=== PATIENT | female | born 1940 | race African-American/Black ===

== ENCOUNTER 2017-05-15 12:01 | Inpatient (IN) | payer OTHER ==
[~2017-05-15] VITALS: Ht 165.1 cm; Wt 85.0 kg
[~2017-05-15 12:01] MED LIST: FERR324T4 PO; LEVO100T8 PO; LEVOFLOXACIN PO; LISI-711 PO; PANTPAK PO; SUCR1TAB36 PO
[2017-05-15] MEDS ORDERED: SODIUM CHLORIDE 0.9% 1,000 ML IVB ONE (12:23)
[2017-05-15 13:10] LABS: Urine Bacteria NONE SEEN /hpf (None Seen); Urine Blood Negative /uL (Negative); Urine Mucus FEW (None Seen); Urine Specific Gravity 1.022 (1.001-1.035); Urine WBC 7 /hpf (0 - 5)
[2017-05-15 13:17] LABS: Basophils # (auto) 0 uL; Eosinophils # (auto) 0 uL; Eosinophils % (auto) 0.1 % (0.0-7.0); Hemoglobin 11.6 g/dL (12.2-16.2); White Blood Cell 8.6 10^3/uL (4.4-10.8)
[2017-05-15 13:18] LABS: Basophils % (auto) 0.6 % (0.0-2.0); Hematocrit 37.7 % (36.0-46.0); Lymphocytes # (auto) 0.8 uL; Lymphocytes % (auto) 8.8 % (10.0-50.0); Mean Corpuscular Hgb Conc. 30.6 g/dL (32.0-36.0); Monocytes # (auto) 0.6 uL; Monocytes % (auto) 6.5 % (0.0-12.0); Neutrophils # (auto) 7.3 uL; Platelet Count (auto) 121 10^3/uL (140-450); Red Blood Cells 5.24 10^6/uL (4.0-5.20); Red Cell Distribution Width 17.6 % (11.8-14.3)
[2017-05-15 13:43] LABS: Alanine Aminotransferase 43 U/L (13-56); Albumin 3.4 g/dL (3.4-5.0); Alkaline Phosphatase 58 U/L (45-117); Anion Gap 13 (5-15); Aspartate Aminotransferase 28 U/L (15-37); BUN/Creatinine Ratio 21.1; Bilirubin, Total 0.6 mg/dL (0.2-1.0); Blood Urea Nitrogen 44 mg/dL (7-18); Calcium 8.4 mg/dL (8.5-10.1); Carbon Dioxide 20 mmol/L (21-32); Chloride 108 mmol/L (98-107); GFR African American 30 mL/min; GFR Non-African American 24 mL/min; Glucose 103 mg/dL (74-106); Magnesium 2.7 mg/dL (1.6-2.6); Potassium 4.1 mmol/L (3.5-5.1); Sodium 141 mmol/L (136-145); Total Protein 7.2 g/dL (6.4-8.2)
[2017-05-15 14:16] LABS: INR 1.05 (0.9-1.15); Partial Thromboplastin Time 34.5 sec (22.64-33.71); Prothrombin Time 11.4 sec (9.37-12.3)
[2017-05-15] MEDS ORDERED: NITROGLYCERIN 0.4 MG SL TAB SL PRN (18:15)
[2017-05-15] MEDS ORDERED: cefTRIAXone 1GM/10ml IVPUSH 10 ML IV ONE (18:15)
[2017-05-15] MEDS ORDERED: DOCUSATE SOD 100 MG CAP PO PRN (18:15)
[2017-05-15] MEDS ORDERED: HYDROcodone-ACET 5/325MG TAB PO PRN (18:15)
[2017-05-15] MEDS ORDERED: ACETAMINOPHEN 325 MG TAB PO PRN (18:15)
[2017-05-15] MEDS ORDERED: MORPHINE SULFATE 4 MG/ML SYR/VIAL IV PRN ×2 (18:15)
[2017-05-15] MEDS ORDERED: ONDANSETRON HCL 4 MG/2 ML VIAL IV PRN (18:15)
[2017-05-15] MEDS ORDERED: TEMAZEPAM 15 MG CAP PO PRN (18:15)
[2017-05-15] MEDS ORDERED: LEVOFLOXACIN 500 MG TAB PO ONE (18:30)
[2017-05-15] MEDS: FAMOTIDINE 20 MG TAB PO SCH (18:48)
[2017-05-15] MEDS: SODIUM CHLOR 0.9% PF (SALINE LOCK) 10ML VIAL IV SCH (22:02)
[2017-05-15] MEDS: APIXABAN 2.5 MG TAB PO SCH (22:09)
[2017-05-16 05:11] LABS: Hemoglobin 11.3 g/dL (12.2-16.2)
[2017-05-16 05:13] LABS: Hematocrit 36.8 % (36.0-46.0); Mean Corpuscular Volume 71.7 fL (80.0-100.0); Red Blood Cells 5.13 10^6/uL (4.0-5.20); Red Cell Distribution Width 17.9 % (11.8-14.3); White Blood Cell 7.3 10^3/uL (4.4-10.8)
[2017-05-16 05:14] LABS: Mean Corpuscular Hemoglobin 22.7 pg (28.0-32.0); Mean Corpuscular Hgb Conc. 31.7 g/dL (32.0-36.0); Platelet Count (auto) 115 10^3/uL (140-450)
[2017-05-16 05:15] LABS: Band Neutrophils % (manual) 0; Basophils % (manual) 0 (0.0-2.0); Blast Cells 0; Eosinophils % (manual) 0 (0-7); Metamyelocytes % 0; Myelocytes % 0; Promyelocytes % 0; Reactive Lymphocytes 0
[2017-05-16 05:23] LABS: Albumin 2.9 g/dL (3.4-5.0); BUN/Creatinine Ratio 31.7; Calcium 8.7 mg/dL (8.5-10.1); Potassium 4.1 mmol/L (3.5-5.1)
[2017-05-16 05:26] LABS: Bilirubin, Total 0.6 mg/dL (0.2-1.0); Total Protein 6.6 g/dL (6.4-8.2)
[2017-05-16 05:40] LABS: Lymphocytes % (manual) 10 (10.0-50.0); Monocytes % (manual) 6 (0-12)
[2017-05-16] MEDS: SODIUM CHLOR 0.9% PF (SALINE LOCK) 10ML VIAL IV SCH ×3 (06:01→22:12)
[2017-05-16] MEDS: FERROUS SULFATE 325 MG TAB PO SCH (08:18)
[2017-05-16] MEDS: APIXABAN 2.5 MG TAB PO SCH ×2 (08:18→22:11)
[2017-05-16] MEDS: LEVOTHYROXINE SODIUM 100 MCG TAB PO SCH (08:18)
[2017-05-16] MEDS: cefTRIAXone 1GM/10ml IVPUSH 10 ML IV SCH (08:18)
[2017-05-16] MEDS: POTASSIUM CHL 20 Meq TABLET PO SCH (08:18)
[2017-05-16] MEDS: MULTIPLE VITAMIN TAB PO SCH (08:19)
[2017-05-16] MEDS: LEVOFLOXACIN 250 MG TAB PO SCH (08:19)
[2017-05-16] MEDS: FUROSEMIDE 40 MG TAB PO SCH (08:19)
[2017-05-16] MEDS: FAMOTIDINE 20 MG TAB PO SCH (08:19)
[2017-05-16] MEDS: LISINOPRIL 20 MG TAB PO SCH (08:19)
[2017-05-16] MEDS ORDERED: ENOXAPARIN SOD 40 MG/0.4 ML SYRINGE SC SCH (10:00)
[2017-05-16 16:48] LABS: Cholesterol 185 mg/dL (< 200); HDL Cholesterol 57 mg/dL (40-59); LDL Cholesterol 118 mg/dL (< 100); Triglycerides 83 mg/dL (< 150)
[2017-05-16 20:00] VITALS: BP 143/68
[2017-05-16] MEDS: ATORVASTATIN 20 MG TAB PO SCH (22:11)
[2017-05-17 05:19] VITALS: BP 144/74
[2017-05-17] MEDS: SODIUM CHLOR 0.9% PF (SALINE LOCK) 10ML VIAL IV SCH ×3 (06:11→17:57)
[2017-05-17] MEDS: LEVOTHYROXINE SODIUM 100 MCG TAB PO SCH (06:27)
[2017-05-17 09:00] VITALS: BP 125/65
[2017-05-17] MEDS: cefTRIAXone 1GM/10ml IVPUSH 10 ML IV SCH (10:38)
[2017-05-17] MEDS: FERROUS SULFATE 325 MG TAB PO SCH (10:39)
[2017-05-17] MEDS: APIXABAN 2.5 MG TAB PO SCH ×2 (10:39→21:29)
[2017-05-17] MEDS: FAMOTIDINE 20 MG TAB PO SCH (10:40)
[2017-05-17] MEDS: LEVOFLOXACIN 250 MG TAB PO SCH (10:40)
[2017-05-17] MEDS: LISINOPRIL 20 MG TAB PO SCH (10:40)
[2017-05-17] MEDS: POTASSIUM CHL 20 Meq TABLET PO SCH (10:41)
[2017-05-17] MEDS: FUROSEMIDE 40 MG TAB PO SCH (10:41)
[2017-05-17] MEDS: MULTIPLE VITAMIN TAB PO SCH (10:41)
[2017-05-17 17:00] VITALS: BP 144/78
[2017-05-17] MEDS: ATORVASTATIN 20 MG TAB PO SCH (21:29)
[2017-05-17 22:00] VITALS: BP 112/67
[2017-05-18 05:00] VITALS: BP 104/64
[2017-05-18] MEDS: LEVOTHYROXINE SODIUM 100 MCG TAB PO SCH (06:07)
[2017-05-18] MEDS: SODIUM CHLOR 0.9% PF (SALINE LOCK) 10ML VIAL IV SCH ×3 (06:07→22:00)
[2017-05-18 09:00] VITALS: BP 117/63
[2017-05-18] MEDS: APIXABAN 2.5 MG TAB PO SCH ×2 (11:27→22:41)
[2017-05-18] MEDS: POTASSIUM CHL 20 Meq TABLET PO SCH (11:27)
[2017-05-18] MEDS: FERROUS SULFATE 325 MG TAB PO SCH (11:27)
[2017-05-18] MEDS: FUROSEMIDE 40 MG TAB PO SCH (11:28)
[2017-05-18] MEDS: LEVOFLOXACIN 250 MG TAB PO SCH (11:28)
[2017-05-18] MEDS: FAMOTIDINE 20 MG TAB PO SCH (11:28)
[2017-05-18] MEDS: MULTIPLE VITAMIN TAB PO SCH (11:28)
[2017-05-18] MEDS: LISINOPRIL 20 MG TAB PO SCH (11:29)
[2017-05-18 16:57] VITALS: BP 112/69
[2017-05-18] MEDS ORDERED: APIX2.5T PO (17:42)
[2017-05-18] MEDS ORDERED: ATOR20TA50 PO (17:42)
[2017-05-18] MEDS ORDERED: DILTIAZEM HCL 25 MG/5 ML VIAL IV ONE (21:45)
[2017-05-18 22:00] VITALS: BP 105/74
[2017-05-18] MEDS: ATORVASTATIN 20 MG TAB PO SCH (22:41)
[2017-05-19 05:00] VITALS: BP 109/76
[2017-05-19] MEDS: SODIUM CHLOR 0.9% PF (SALINE LOCK) 10ML VIAL IV SCH ×2 (05:49→14:00)
[2017-05-19] MEDS: LEVOTHYROXINE SODIUM 100 MCG TAB PO SCH (06:22)
[2017-05-19 08:00] VITALS: BP_SYST 101; BP_SYST 96; BP_DIAS 51; BP_DIAS 55
[2017-05-19] MEDS: FUROSEMIDE 40 MG TAB PO SCH (10:00)
[2017-05-19] MEDS: LISINOPRIL 20 MG TAB PO SCH (10:00)
[2017-05-19] MEDS: POTASSIUM CHL 20 Meq TABLET PO SCH (10:41)
[2017-05-19] MEDS: FAMOTIDINE 20 MG TAB PO SCH (10:41)
[2017-05-19] MEDS: APIXABAN 2.5 MG TAB PO SCH (10:41)
[2017-05-19] MEDS: MULTIPLE VITAMIN TAB PO SCH (10:41)
[2017-05-19] MEDS: FERROUS SULFATE 325 MG TAB PO SCH (10:41)
[2017-05-19] MEDS: LEVOFLOXACIN 250 MG TAB PO SCH (10:42)
[2017-05-19] MEDS ORDERED: LACTULOSE 20Gm/30ML SOLN PO ONE (11:45)
[2017-05-19] MEDS: SODIUM CHLORIDE 0.9% 1,000 ML IV SCH ×2 (11:45→16:45)
[2017-05-19 12:00] VITALS: BP 96/53
[2017-05-19 12:31] VITALS: BP 101/50
[2017-05-19 16:56] VITALS: BP 91/47
== END 2017-05-19 17:05 | disposition home health service (06) | DRG 64 ==
LOC: ER 12:01 → TELE 12:02 → TELE-EAST 05-16 20:00
PROVIDERS: ADMIT Internal Medicine; ATTEND Internal Medicine
DX: I63.9 Cerebral infarction, unspecified (principal); G93.40 Encephalopathy, unspecified; D69.6 Thrombocytopenia, unspecified; R47.01 Aphasia; E83.41 Hypermagnesemia; E83.51 Hypocalcemia; N18.3 Chronic kidney disease, stage 3 (moderate); E86.0 Dehydration; I13.10 Hypertensive heart and chronic kidney disease without heart failure, with stage 1 through stage 4 chronic kidney disease, or unspecified chronic kidney disease; D50.9 Iron deficiency anemia, unspecified; E03.9 Hypothyroidism, unspecified; E78.00 Pure hypercholesterolemia, unspecified; F17.200 Nicotine dependence, unspecified, uncomplicated; R00.0 Tachycardia, unspecified; I49.3 Ventricular premature depolarization; K21.9 Gastro-esophageal reflux disease without esophagitis; Z79.01 Long term (current) use of anticoagulants; Z85.3 Personal history of malignant neoplasm of breast; Z86.73 Personal history of transient ischemic attack (TIA), and cerebral infarction without residual deficits
CPT/HCPCS: 36415; 51702; 70450; 70551; 71045; 80053; 80061; 81001; 82962; 83036; 83605; 83735; 83880; 84443; 84484; 85007; 85025; 85027; 85610; 85730; 87040; 87081; 87086; 87804; 92610; 93005; 93306; 93886; 94761; 96361; 96374; 96375; 96376; 97116; 97163; 97530; J2405

== ENCOUNTER 2021-06-02 15:24 | Inpatient (IN) | payer OTHER ==
[~2021-06-02] VITALS: Ht 172.7 cm; Wt 100.5 kg
[~2021-06-02 15:24] MED LIST changes: +APIX2.5T PO; +ATOR20TA50 PO
[2021-06-02 18:49] LABS: Albumin 3.6 g/dL (3.4-5.0); Calcium 9.2 mg/dL (8.5-10.1); Potassium 4.1 mmol/L (3.5-5.1)
[2021-06-02 18:53] LABS: Lactic Acid w/Reflex 2.1 mmol/L (0.4-2.0)
[2021-06-02 18:55] LABS: BUN/Creatinine Ratio 11.2; Bilirubin, Total 0.8 mg/dL (0.2-1.0)
[2021-06-02 19:12] LABS: Mean Corpuscular Hemoglobin 25.4 pg (28.0-32.0); Mean Corpuscular Volume 77.3 fL (80.0-100.0); White Blood Cell 7.1 10^3/uL (4.4-10.8)
[2021-06-02 19:14] LABS: Hematocrit 31.2 % (36.0-46.0); Hemoglobin 10.3 g/dL (12.2-16.2); Mean Corpuscular Hgb Conc. 32.9 g/dL (32.0-36.0); Red Blood Cells 4.03 10^6/uL (4.0-5.20)
[2021-06-02 19:23] LABS: Basophils % (manual) 0 (0.0-2.0); Blast Cells 0; Eosinophils % (manual) 0 (0-7); Promyelocytes % 0
[2021-06-02 20:06] LABS: Band Neutrophils % (manual) 11; Lymphocytes % (manual) 18 (10.0-50.0); Metamyelocytes % 1; Monocytes % (manual) 4 (0-12); Myelocytes % 1; Reactive Lymphocytes 1
[2021-06-02 20:41] LABS: Urine Bacteria FEW /hpf (None Seen); Urine Blood 1+ /uL (Negative); Urine Mucus FEW (None Seen); Urine Specific Gravity 1.018 (1.001-1.035); Urine WBC 66 /hpf (0 - 5)
[2021-06-02] MEDS ORDERED: cefTRIAXone 1GM/50ML D5W 50 ML IV ONE (21:30)
[2021-06-02] MEDS ORDERED: MORPHINE SULFATE INJECTION 2 MG/ML SYRG IV PRN (21:30)
[2021-06-02] MEDS ORDERED: NITROGLYCERIN 0.4 MG SL TAB SL PRN (21:30)
[2021-06-02] MEDS ORDERED: ONDANSETRON HCL 4 MG/2 ML VIAL IV PRN (21:30)
[2021-06-02 23:02] VITALS: BP 112/47
[2021-06-02] MEDS: APIXABAN 2.5 MG TAB PO SCH (23:03)
[2021-06-02] MEDS: ACETAMINOPHEN 325 MG TAB PO PRN (23:03)
[2021-06-02] MEDS: ATORVASTATIN 20 MG TAB PO SCH (23:03)
[2021-06-03] VITALS (38 sets, daily range): BP systolic 67–141; BP diastolic 28–76
[2021-06-03] MEDS: HYDROcodone-ACET 5/325MG TAB PO PRN (02:02)
[2021-06-03] MEDS ORDERED: ALBUMIN 5% 250 ML IV ONE ×2 (04:43→04:45)
[2021-06-03 06:05] LABS: Red Cell Distribution Width 16.8 % (11.8-14.3)
[2021-06-03 06:07] LABS: Hematocrit 25.5 % (36.0-46.0); Hemoglobin 8.7 g/dL (12.2-16.2); Mean Corpuscular Hgb Conc. 34.2 g/dL (32.0-36.0); Mean Corpuscular Volume 76.1 fL (80.0-100.0); Red Blood Cells 3.35 10^6/uL (4.0-5.20); White Blood Cell 5.7 10^3/uL (4.4-10.8)
[2021-06-03 06:16] LABS: Albumin 3.1 g/dL (3.4-5.0); Calcium 8.3 mg/dL (8.5-10.1); Potassium 3.5 mmol/L (3.5-5.1)
[2021-06-03 06:19] LABS: BUN/Creatinine Ratio 14.2
[2021-06-03 06:22] LABS: Bilirubin, Total 0.7 mg/dL (0.2-1.0); Total Protein 6.4 g/dL (6.4-8.2)
[2021-06-03] MEDS: NOREPINEPHRINE 8 MG/250ML KIT 250 ML IV SCH (06:30)
[2021-06-03] MEDS: LEVOTHYROXINE SODIUM 100 MCG TAB PO SCH (07:00)
[2021-06-03 07:14] LABS: Basophils % (manual) 0 (0.0-2.0); Blast Cells 0; Eosinophils % (manual) 0 (0-7); Promyelocytes % 0; Reactive Lymphocytes 0
[2021-06-03 08:24] LABS: Band Neutrophils % (manual) 13; Lymphocytes % (manual) 18 (10.0-50.0); Metamyelocytes % 1; Monocytes % (manual) 7 (0-12); Myelocytes % 1
[2021-06-03] MEDS: cefTRIAXone 1GM/50ML D5W 50 ML IV SCH (09:11)
[2021-06-03] MEDS ORDERED: ASPirin 81 mg TAB PO SCH (10:00)
[2021-06-03] MEDS ORDERED: PANTOPRAZOLE 40 MG TAB PO SCH (10:00)
[2021-06-03] MEDS: APIXABAN 2.5 MG TAB PO SCH (10:40)
[2021-06-03] MEDS: SODIUM CHLORIDE 0.9% 1,000 ML IV SCH ×2 (10:41→20:30)
[2021-06-03] MEDS: ALBUMIN 25% 100 ML IV SCH ×2 (15:17→22:14)
[2021-06-03 16:56] LABS: % Iron Saturation 17.6 % (15-50)
[2021-06-03] MEDS ORDERED: EPOETIN ALFA-EPBX 10,000 UNIT/1ML VIAL SC ONE (21:00)
[2021-06-03] MEDS: ATORVASTATIN 20 MG TAB PO SCH (22:13)
[2021-06-03] MEDS: GABAPENTIN 100 MG CAP PO SCH (22:15)
[2021-06-04] VITALS (94 sets, daily range): BP systolic 79–131; BP diastolic 43–81
[2021-06-04 05:17] LABS: Hematocrit 25.7 % (36.0-46.0); Hemoglobin 8.4 g/dL (12.2-16.2); Mean Corpuscular Hemoglobin 24.8 pg (28.0-32.0); Mean Corpuscular Hgb Conc. 32.6 g/dL (32.0-36.0); Mean Corpuscular Volume 76.1 fL (80.0-100.0); Red Blood Cells 3.37 10^6/uL (4.0-5.20); Red Cell Distribution Width 16.7 % (11.8-14.3)
[2021-06-04 05:19] LABS: Basophils % (manual) 0 (0.0-2.0); Blast Cells 0; Metamyelocytes % 0; Myelocytes % 0; Promyelocytes % 0; Reactive Lymphocytes 0
[2021-06-04 05:22] LABS: BUN/Creatinine Ratio 19.9; Potassium 3.3 mmol/L (3.5-5.1)
[2021-06-04] MEDS: NOREPINEPHRINE 8 MG/250ML KIT 250 ML IV SCH (06:28)
[2021-06-04] MEDS: LEVOTHYROXINE SODIUM 100 MCG TAB PO SCH (06:30)
[2021-06-04] MEDS: ALBUMIN 25% 100 ML IV SCH (06:30)
[2021-06-04] MEDS: cefTRIAXone 1GM/50ML D5W 50 ML IV SCH (08:24)
[2021-06-04 08:51] LABS: Band Neutrophils % (manual) 5; Eosinophils % (manual) 4 (0-7); Lymphocytes % (manual) 14 (10.0-50.0); Monocytes % (manual) 7 (0-12)
[2021-06-04] MEDS ORDERED: POTASSIUM EFFERVESENT TAB 25 MEQ PO ONE (09:15)
[2021-06-04] MEDS: D5W/SOD CHL 0.45% 1,000 ML IV SCH ×2 (09:50→21:16)
[2021-06-04] MEDS: GABAPENTIN 100 MG CAP PO SCH (09:52)
[2021-06-04] MEDS ORDERED: ASPirin 81 mg TAB PO SCH (10:00)
[2021-06-04] MEDS: HYDROcodone-ACET 5/325MG TAB PO PRN (17:28)
[2021-06-04] MEDS: ATORVASTATIN 20 MG TAB PO SCH (21:55)
[2021-06-05] VITALS (93 sets, daily range): BP systolic 75–144; BP diastolic 43–97
[2021-06-05] MEDS: HYDROcodone-ACET 5/325MG TAB PO PRN ×3 (01:34→19:29)
[2021-06-05 05:04] LABS: Hemoglobin 7.9 g/dL (12.2-16.2); White Blood Cell 4.9 10^3/uL (4.4-10.8)
[2021-06-05 05:06] LABS: Mean Corpuscular Hemoglobin 25.1 pg (28.0-32.0); Mean Corpuscular Volume 76.1 fL (80.0-100.0); Red Blood Cells 3.15 10^6/uL (4.0-5.20); Red Cell Distribution Width 16.9 % (11.8-14.3)
[2021-06-05] MEDS: D5W/SOD CHL 0.45% 1,000 ML IV SCH ×2 (05:15→15:15)
[2021-06-05 05:22] LABS: BUN/Creatinine Ratio 20.6; Calcium 7.5 mg/dL (8.5-10.1); Potassium 3.2 mmol/L (3.5-5.1)
[2021-06-05 05:40] LABS: Basophils % (manual) 0 (0.0-2.0); Blast Cells 0; Eosinophils % (manual) 0 (0-7); Myelocytes % 0; Promyelocytes % 0; Reactive Lymphocytes 0
[2021-06-05] MEDS: LEVOTHYROXINE SODIUM 100 MCG TAB PO SCH (06:17)
[2021-06-05] MEDS: NOREPINEPHRINE 8 MG/250ML KIT 250 ML IV SCH (06:18)
[2021-06-05 07:18] LABS: Band Neutrophils % (manual) 14; Lymphocytes % (manual) 16 (10.0-50.0); Metamyelocytes % 2; Monocytes % (manual) 4 (0-12)
[2021-06-05] MEDS: cefTRIAXone 1GM/50ML D5W 50 ML IV SCH (09:01)
[2021-06-05] MEDS: GABAPENTIN 100 MG CAP PO SCH (09:52)
[2021-06-05] MEDS: POTASSIUM CHL 20MEQ/100ML 100 ML IV SCH ×2 (09:52→11:30)
[2021-06-05 15:34] LABS: Protein, Urine 118.7 mg/dL (0.0-11.9)
[2021-06-05 15:49] LABS: Urine Bacteria FEW /hpf (None Seen); Urine Blood TRACE /uL (Negative); Urine Mucus FEW (None Seen); Urine Specific Gravity 1.019 (1.001-1.035); Urine WBC 14 /hpf (0 - 5)
[2021-06-05] MEDS: SILDENAFIL CITRATE 20 MG TAB PO SCH (20:15)
[2021-06-05] MEDS: ATORVASTATIN 20 MG TAB PO SCH (21:47)
[2021-06-06] VITALS (80 sets, daily range): BP systolic 66–140; BP diastolic 36–89
[2021-06-06] MEDS: D5W/SOD CHL 0.45% 1,000 ML IV SCH ×3 (02:15→22:19)
[2021-06-06 05:13] LABS: BUN/Creatinine Ratio 18.5; Calcium 7.6 mg/dL (8.5-10.1); Potassium 3.4 mmol/L (3.5-5.1)
[2021-06-06] MEDS: NOREPINEPHRINE 8 MG/250ML KIT 250 ML IV SCH (06:00)
[2021-06-06] MEDS: LEVOTHYROXINE SODIUM 100 MCG TAB PO SCH (06:25)
[2021-06-06] MEDS: SILDENAFIL CITRATE 20 MG TAB PO SCH ×3 (09:01→22:19)
[2021-06-06] MEDS: cefTRIAXone 1GM/50ML D5W 50 ML IV SCH (09:02)
[2021-06-06] MEDS: GABAPENTIN 100 MG CAP PO SCH (10:19)
[2021-06-06] MEDS ORDERED: POTASSIUM CHL 20MEQ/100ML 100 ML IV ONE (16:45)
[2021-06-06] MEDS ORDERED: SODIUM CHLORIDE 0.9% 1,000 ML IV ONE (17:00)
[2021-06-06] MEDS: PANTOPRAZOLE 40 MG TAB PO SCH (18:08)
[2021-06-06 18:11] LABS: White Blood Cell 3.4 10^3/uL (4.4-10.8)
[2021-06-06 18:13] LABS: Hematocrit 26.1 % (36.0-46.0); Hemoglobin 8.6 g/dL (12.2-16.2); Mean Corpuscular Hemoglobin 25.3 pg (28.0-32.0); Mean Corpuscular Hgb Conc. 32.9 g/dL (32.0-36.0); Mean Corpuscular Volume 76.9 fL (80.0-100.0)
[2021-06-06 18:15] LABS: Basophils % (manual) 0 (0.0-2.0); Blast Cells 0; Metamyelocytes % 0; Myelocytes % 0; Promyelocytes % 0; Reactive Lymphocytes 0
[2021-06-06 19:03] LABS: Band Neutrophils % (manual) 2; Eosinophils % (manual) 1 (0-7); Lymphocytes % (manual) 25 (10.0-50.0); Monocytes % (manual) 8 (0-12)
[2021-06-06] MEDS: ATORVASTATIN 20 MG TAB PO SCH (22:20)
[2021-06-07] VITALS (65 sets, daily range): BP systolic 83–153; BP diastolic 50–93
[2021-06-07 05:18] LABS: Basophils # (auto) 0 10 ^3/uL (0-0.2); Basophils % (auto) 0.5 % (0.0-2.0); Eosinophils # (auto) 0.1 10 ^3/uL (0-0.8); Eosinophils % (auto) 1.7 % (0.0-7.0); Hematocrit 28.3 % (36.0-46.0); Hemoglobin 8.9 g/dL (12.2-16.2); Lymphocytes % (auto) 26.6 % (10.0-50.0); Mean Corpuscular Hemoglobin 24.1 pg (28.0-32.0); Mean Corpuscular Hgb Conc. 31.4 g/dL (32.0-36.0); Mean Corpuscular Volume 76.7 fL (80.0-100.0); Monocytes # (auto) 0.4 10 ^3/uL (0-1.3); Monocytes % (auto) 10.7 % (0.0-12.0); Neutrophils # (auto) 2.2 10 ^3/uL (1.6-8.6); Neutrophils % (auto) 60.5 % (37.0-80.0); Red Blood Cells 3.68 10^6/uL (4.0-5.20); Red Cell Distribution Width 16.7 % (11.8-14.3); White Blood Cell 3.7 10^3/uL (4.4-10.8)
[2021-06-07 05:28] LABS: Calcium 7.5 mg/dL (8.5-10.1); Potassium 3.5 mmol/L (3.5-5.1)
[2021-06-07 05:30] LABS: BUN/Creatinine Ratio 16.3
[2021-06-07] MEDS: NOREPINEPHRINE 8 MG/250ML KIT 250 ML IV SCH (06:00)
[2021-06-07] MEDS: LEVOTHYROXINE SODIUM 100 MCG TAB PO SCH (06:49)
[2021-06-07] MEDS: D5W/SOD CHL 0.45% 1,000 ML IV SCH ×2 (10:57→18:00)
[2021-06-07] MEDS: cefTRIAXone 1GM/50ML D5W 50 ML IV SCH (10:58)
[2021-06-07] MEDS: GABAPENTIN 100 MG CAP PO SCH (10:59)
[2021-06-07] MEDS: PANTOPRAZOLE 40 MG TAB PO SCH (11:02)
[2021-06-07] MEDS ORDERED: SODIUM CHLORIDE 0.9% 1,000 ML IV ONE (12:15)
[2021-06-07] MEDS: SILDENAFIL CITRATE 20 MG TAB PO SCH ×3 (17:02→20:07)
[2021-06-07] MEDS: ATORVASTATIN 20 MG TAB PO SCH (22:13)
[2021-06-08] VITALS (49 sets, daily range): BP systolic 76–153; BP diastolic 32–96
[2021-06-08] MEDS: NOREPINEPHRINE 8 MG/250ML KIT 250 ML IV SCH (06:00)
[2021-06-08] MEDS: D5W/SOD CHL 0.45% 1,000 ML IV SCH ×2 (06:09→17:43)
[2021-06-08 06:22] LABS: BUN/Creatinine Ratio 12.3; Calcium 7.8 mg/dL (8.5-10.1); Potassium 3.3 mmol/L (3.5-5.1)
[2021-06-08 06:49] LABS: Basophils # (auto) 0 10 ^3/uL (0-0.2); Basophils % (auto) 0.3 % (0.0-2.0); Eosinophils # (auto) 0.1 10 ^3/uL (0-0.8); Eosinophils % (auto) 2.3 % (0.0-7.0); Hematocrit 28.6 % (36.0-46.0); Lymphocytes # (auto) 0.8 10 ^3/uL (0.4-5.4); Lymphocytes % (auto) 23.1 % (10.0-50.0); Mean Corpuscular Hemoglobin 24.3 pg (28.0-32.0); Mean Corpuscular Hgb Conc. 31.6 g/dL (32.0-36.0); Mean Corpuscular Volume 77.1 fL (80.0-100.0); Monocytes # (auto) 0.4 10 ^3/uL (0-1.3); Monocytes % (auto) 11.5 % (0.0-12.0); Neutrophils # (auto) 2.2 10 ^3/uL (1.6-8.6); Neutrophils % (auto) 62.8 % (37.0-80.0); Nucleated Red Blood Cells % 0.7 %; Red Blood Cells 3.72 10^6/uL (4.0-5.20); White Blood Cell 3.4 10^3/uL (4.4-10.8)
[2021-06-08] MEDS: LEVOTHYROXINE SODIUM 100 MCG TAB PO SCH (06:51)
[2021-06-08] MEDS: SILDENAFIL CITRATE 20 MG TAB PO SCH ×3 (09:00→21:11)
[2021-06-08] MEDS: cefTRIAXone 1GM/50ML D5W 50 ML IV SCH (09:16)
[2021-06-08] MEDS ORDERED: POTASSIUM CHL 20MEQ/100ML 100 ML IV ONE (10:00)
[2021-06-08] MEDS: MAGNESIUM SULFATE 1GM/100ML 100 ML IV SCH ×2 (10:30→17:43)
[2021-06-08] MEDS: PANTOPRAZOLE 40 MG TAB PO SCH (10:45)
[2021-06-08] MEDS: GABAPENTIN 100 MG CAP PO SCH (10:45)
[2021-06-08] MEDS ORDERED: MAGNESIUM SULFATE 1GM/100ML 100 ML IV SCH (11:00)
[2021-06-08] MEDS: ATORVASTATIN 20 MG TAB PO SCH (21:11)
[2021-06-09] VITALS (26 sets, daily range): BP systolic 75–132; BP diastolic 31–79
[2021-06-09] MEDS: NOREPINEPHRINE 8 MG/250ML KIT 250 ML IV SCH (06:00)
[2021-06-09] MEDS: D5W/SOD CHL 0.45% 1,000 ML IV SCH ×3 (06:31→16:04)
[2021-06-09] MEDS: LEVOTHYROXINE SODIUM 100 MCG TAB PO SCH (06:46)
[2021-06-09 07:33] LABS: Basophils # (auto) 0 10 ^3/uL (0-0.2); Eosinophils # (auto) 0.1 10 ^3/uL (0-0.8); Hemoglobin 8.8 g/dL (12.2-16.2); Mean Corpuscular Hemoglobin 25.1 pg (28.0-32.0); Monocytes # (auto) 0.3 10 ^3/uL (0-1.3); White Blood Cell 3.4 10^3/uL (4.4-10.8)
[2021-06-09 07:34] LABS: Basophils % (auto) 0.3 % (0.0-2.0); Calcium 8.1 mg/dL (8.5-10.1); Eosinophils % (auto) 1.7 % (0.0-7.0); Hematocrit 29.1 % (36.0-46.0); Lymphocytes % (auto) 28.5 % (10.0-50.0); Magnesium 1.7 mg/dL (1.6-2.6); Mean Corpuscular Hgb Conc. 30.2 g/dL (32.0-36.0); Mean Corpuscular Volume 83.1 fL (80.0-100.0); Monocytes % (auto) 9.7 % (0.0-12.0); Neutrophils % (auto) 59.8 % (37.0-80.0); Nucleated Red Blood Cells % 0.6 %; Potassium 3.6 mmol/L (3.5-5.1); Red Cell Distribution Width 17.6 % (11.8-14.3)
[2021-06-09] MEDS: cefTRIAXone 1GM/50ML D5W 50 ML IV SCH (08:40)
[2021-06-09] MEDS: SILDENAFIL CITRATE 20 MG TAB PO SCH ×3 (08:41→20:39)
[2021-06-09] MEDS: GABAPENTIN 100 MG CAP PO SCH (09:43)
[2021-06-09] MEDS: PANTOPRAZOLE 40 MG TAB PO SCH (09:43)
[2021-06-09] MEDS: ATORVASTATIN 20 MG TAB PO SCH (20:39)
[2021-06-10 04:59] VITALS: BP 113/54
[2021-06-10] MEDS: LEVOTHYROXINE SODIUM 100 MCG TAB PO SCH (05:56)
[2021-06-10 08:06] LABS: BUN/Creatinine Ratio 10.4; Calcium 8.2 mg/dL (8.5-10.1); Potassium 3.5 mmol/L (3.5-5.1)
[2021-06-10] MEDS: SILDENAFIL CITRATE 20 MG TAB PO SCH ×2 (08:40→14:17)
[2021-06-10] MEDS: ACETAMINOPHEN 325 MG TAB PO PRN (08:51)
[2021-06-10] MEDS: GABAPENTIN 100 MG CAP PO SCH (09:19)
[2021-06-10] MEDS: PANTOPRAZOLE 40 MG TAB PO SCH (09:19)
[2021-06-10 09:38] VITALS: BP 93/56
[2021-06-10] MEDS ORDERED: levoFLOXacin 500 MG TAB PO SCH (10:00)
[2021-06-10] MEDS: HYDROcodone-ACET 5/325MG TAB PO PRN (10:44)
[2021-06-10 13:00] VITALS: BP 83/149
[2021-06-10 17:00] VITALS: BP 101/59
== END 2021-06-10 18:06 | DRG 689 ==
LOC: EDBD 15:24 → ER 15:24 → TELE 21:27 → TELE-CENTR 22:40 → ICU CENTRL 06-03 06:15 → TELE 06-05 14:07 → ICU CENTRL 06-05 14:13 → DOU IN ICU 06-05 21:24 → ICU CENTRL 06-06 19:23 → DOU IN ICU 06-08 17:51 → TELE-EAST 06-09 17:15
PROVIDERS: ADMIT Nurse Practitioner; ATTEND Hospitalist
PROC: 05H933Z Insertion of Infusion Device into Right Brachial Vein, Percutaneous Approach (ICD-10-PCS; 2021-06-03)
PROC: B54MZZA Ultrasonography of Right Upper Extremity Veins, Guidance (ICD-10-PCS; 2021-06-03)
PROC: 05H933Z Insertion of Infusion Device into Right Brachial Vein, Percutaneous Approach (ICD-10-PCS; principal; 2021-06-09)
PROC: B54MZZA Ultrasonography of Right Upper Extremity Veins, Guidance (ICD-10-PCS; 2021-06-09)
DX: N39.0 Urinary tract infection, site not specified (principal); A41.9 Sepsis, unspecified organism; G92.8 Other toxic encephalopathy; R65.21 Severe sepsis with septic shock; N17.0 Acute kidney failure with tubular necrosis; I21.A1 Myocardial infarction type 2; E87.0 Hyperosmolality and hypernatremia; E87.1 Hypo-osmolality and hyponatremia; N18.4 Chronic kidney disease, stage 4 (severe); E78.5 Hyperlipidemia, unspecified; E66.9 Obesity, unspecified; E87.6 Hypokalemia; E03.9 Hypothyroidism, unspecified; B96.20 Unspecified Escherichia coli [E. coli] as the cause of diseases classified elsewhere; D63.8 Anemia in other chronic diseases classified elsewhere; Z20.822 Contact with and (suspected) exposure to COVID-19; I73.9 Peripheral vascular disease, unspecified; E83.42 Hypomagnesemia; G31.84 Mild cognitive impairment of uncertain or unknown etiology; I12.9 Hypertensive chronic kidney disease with stage 1 through stage 4 chronic kidney disease, or unspecified chronic kidney disease; K21.9 Gastro-esophageal reflux disease without esophagitis; Z91.14 Patient's other noncompliance with medication regimen; Z91.041 Radiographic dye allergy status; Z68.33 Body mass index [BMI] 33.0-33.9, adult
CPT/HCPCS: 36415; 70450; 71045; 76775; 80048; 80053; 81001; 82270; 82533; 82550; 82570; 82728; 82962; 83540; 83550; 83605; 83735; 83880; 84132; 84156; 84300; 84439; 84443; 84484; 85007; 85025; 85027; 87040; 87081; 87086; 87088; 87186; 93005; 93306; 93925; 93970; 96365; 97110; 97163; 97530; G0378; J0696; J3480; P9047

== ENCOUNTER 2022-01-26 15:53 | Inpatient (IN) | payer MEDICARE, MEDICAID ==
[~2022-01-26] VITALS: Ht 160 cm; Wt 71.6 kg
[~2022-01-26 15:53] MED LIST changes: +ANAS1TAB7 PO; +FURO40TA4 PO; +HYDR50TA15 PO; +LISI20TA28 PO; +METO25TA5 PO; +PANC24002 PO; +PANT40TA2 PO; +TRAM50TA2 PO
[2022-01-26 16:43] LABS: Basophils # (auto) 0 10 ^3/uL (0-0.2); Eosinophils # (auto) 0.1 10 ^3/uL (0-0.8); Eosinophils % (auto) 1.1 % (0.0-7.0); Lymphocytes # (auto) 1.5 10 ^3/uL (0.4-5.4)
[2022-01-26 16:45] LABS: Hematocrit 22.1 % (36.0-46.0); Lymphocytes % (auto) 27.8 % (10.0-50.0); Mean Corpuscular Hemoglobin 23.1 pg (28.0-32.0); Mean Corpuscular Hgb Conc. 30.7 g/dL (32.0-36.0); Mean Corpuscular Volume 75.2 fL (80.0-100.0); Monocytes # (auto) 0.4 10 ^3/uL (0-1.3); Monocytes % (auto) 6.6 % (0.0-12.0); Neutrophils # (auto) 3.5 10 ^3/uL (1.6-8.6); Neutrophils % (auto) 64.5 % (37.0-80.0); Nucleated Red Blood Cells % 0.7 %; Red Blood Cells 2.93 10^6/uL (4.0-5.20); Red Cell Distribution Width 17.2 % (11.8-14.3); White Blood Cell 5.4 10^3/uL (4.4-10.8)
[2022-01-26 16:48] LABS: Hemoglobin 6.8 g/dL (12.2-16.2)
[2022-01-26 16:58] LABS: INR 1.01 (0.9-1.15); Partial Thromboplastin Time 32.8 sec (24.6-33.4)
[2022-01-26 17:01] LABS: Albumin 2.7 g/dL (3.4-5.0); BUN/Creatinine Ratio 31.3; Calcium 8.7 mg/dL (8.5-10.1)
[2022-01-26 17:04] LABS: Bilirubin, Total 0.2 mg/dL (0.2-1.0); Total Protein 6.6 g/dL (6.4-8.2)
[2022-01-26] MEDS ORDERED: IOHEXOL 350 MG/ML 100ML IJ ONE (21:03)
[2022-01-27] MEDS ORDERED: AZITHROMYCIN 250 MG TAB PO ONE (00:15)
[2022-01-27] MEDS ORDERED: cefTRIAXone 1GM/50ML D5W 50 ML IV ONE (00:15)
[2022-01-27] MEDS ORDERED: ONDANSETRON HCL 4 MG/2 ML VIAL IV PRN (01:30)
[2022-01-27] MEDS ORDERED: ACETAMINOPHEN 325 MG TAB PO PRN (01:30)
[2022-01-27] MEDS ORDERED: HYDROcodone-ACET 5/325MG TAB PO PRN (01:30)
[2022-01-27] MEDS ORDERED: ALBUTEROL SULF 2.5 MG/0.5ML(0.5%) NEB SOLN NEB PRN (01:30)
[2022-01-27] MEDS ORDERED: guaiFENesin-DM 100/10mg/5ml SYR PO PRN (01:30)
[2022-01-27 01:46] VITALS: BP 100/58
[2022-01-27 04:20] VITALS: BP 97/58
[2022-01-27 04:40] VITALS: BP 92/60
[2022-01-27 06:00] VITALS: BP 106/55
[2022-01-27] MEDS: LEVOTHYROXINE SODIUM 50 MCG TAB PO SCH (07:12)
[2022-01-27 07:29] LABS: Hemoglobin 7.7 g/dL (12.2-16.2)
[2022-01-27 07:31] LABS: Hematocrit 24.4 % (36.0-46.0)
[2022-01-27] MEDS: APIXABAN 2.5 MG TAB PO SCH ×2 (11:25→21:42)
[2022-01-27] MEDS: PANTOPRAZOLE 40 MG TAB PO SCH (11:25)
[2022-01-27] MEDS: AZITHROMYCIN 500MG/ 250ML 250 ML IV SCH (11:25)
[2022-01-27] MEDS: METOPROLOL TARTRATE 25 MG TAB PO SCH ×2 (11:25→21:45)
[2022-01-27] MEDS: FUROSEMIDE 40 MG TAB PO SCH (11:25)
[2022-01-27] MEDS: SODIUM CHLORIDE 0.9% 500 ML IV SCH ×2 (18:27→23:28)
[2022-01-27 19:14] LABS: Urine Bacteria NONE SEEN /hpf (None Seen); Urine Blood TRACE /uL (Negative); Urine Specific Gravity 1.018 (1.001-1.035); Urine WBC 27 /hpf (0 - 5)
[2022-01-27 20:00] VITALS: BP 109/58
[2022-01-27] MEDS: ATORVASTATIN 20 MG TAB PO SCH (21:42)
[2022-01-27 22:00] VITALS: BP 109/58
[2022-01-28] MEDS: SODIUM CHLORIDE 0.9% 500 ML IV SCH ×4 (04:15→17:59)
[2022-01-28 05:00] VITALS: BP 95/54
[2022-01-28] MEDS: LEVOTHYROXINE SODIUM 50 MCG TAB PO SCH (06:45)
[2022-01-28 08:00] VITALS: BP 103/62
[2022-01-28 08:42] VITALS: BP 103/62
[2022-01-28] MEDS: FUROSEMIDE 40 MG TAB PO SCH (10:00)
[2022-01-28] MEDS: AZITHROMYCIN 500MG/ 250ML 250 ML IV SCH (10:00)
[2022-01-28] MEDS: PANTOPRAZOLE 40 MG TAB PO SCH (10:00)
[2022-01-28] MEDS: APIXABAN 2.5 MG TAB PO SCH ×2 (10:00→22:33)
[2022-01-28] MEDS: METOPROLOL TARTRATE 25 MG TAB PO SCH ×2 (10:00→22:34)
[2022-01-28 20:00] VITALS: BP 107/59
[2022-01-28] MEDS: ATORVASTATIN 20 MG TAB PO SCH (22:33)
[2022-01-29] MEDS: SODIUM CHLORIDE 0.9% 500 ML IV SCH ×3 (00:15→20:15)
[2022-01-29 05:00] VITALS: BP 102/60
[2022-01-29] MEDS: LEVOTHYROXINE SODIUM 50 MCG TAB PO SCH (06:44)
[2022-01-29] MEDS: APIXABAN 2.5 MG TAB PO SCH ×2 (09:46→22:54)
[2022-01-29] MEDS: PANTOPRAZOLE 40 MG TAB PO SCH (09:46)
[2022-01-29] MEDS: AZITHROMYCIN 500MG/ 250ML 250 ML IV SCH (09:46)
[2022-01-29] MEDS: METOPROLOL TARTRATE 25 MG TAB PO SCH ×2 (09:47→22:00)
[2022-01-29] MEDS: FUROSEMIDE 40 MG TAB PO SCH (09:47)
[2022-01-29 12:30] VITALS: BP 110/66
[2022-01-29 16:35] VITALS: BP 127/61
[2022-01-29 16:59] VITALS: BP 127/61
[2022-01-29 22:00] VITALS: BP 100/63
[2022-01-29] MEDS: ATORVASTATIN 20 MG TAB PO SCH (22:55)
[2022-01-30] MEDS: SODIUM CHLORIDE 0.9% 500 ML IV SCH ×4 (01:15→16:15)
[2022-01-30 05:00] VITALS: BP 100/52
[2022-01-30] MEDS: LEVOTHYROXINE SODIUM 50 MCG TAB PO SCH (06:25)
[2022-01-30 09:00] VITALS: BP 112/55
[2022-01-30] MEDS: AZITHROMYCIN 500MG/ 250ML 250 ML IV SCH (10:00)
[2022-01-30] MEDS: FUROSEMIDE 40 MG TAB PO SCH (11:03)
[2022-01-30] MEDS: APIXABAN 2.5 MG TAB PO SCH (11:03)
[2022-01-30] MEDS: PANTOPRAZOLE 40 MG TAB PO SCH (11:04)
[2022-01-30] MEDS: METOPROLOL TARTRATE 25 MG TAB PO SCH (11:04)
[2022-01-30 13:00] VITALS: BP 114/54
[2022-01-30 17:00] VITALS: BP 93/56
== END 2022-01-30 17:15 | DRG 193 ==
LOC: ER 15:53 → EDBD 15:53 → OVERFLOW 01-27 01:27 → WEST WING 01-27 18:10
PROVIDERS: ADMIT Nurse Practitioner; ATTEND Family Medicine
PROC: 30233N1 Transfusion of Nonautologous Red Blood Cells into Peripheral Vein, Percutaneous Approach (ICD-10-PCS; principal; 2022-01-27)
DX: J18.9 Pneumonia, unspecified organism (principal); J96.01 Acute respiratory failure with hypoxia; D64.9 Anemia, unspecified; I27.21 Secondary pulmonary arterial hypertension; I10 Essential (primary) hypertension; Z20.822 Contact with and (suspected) exposure to COVID-19; E03.9 Hypothyroidism, unspecified; E78.00 Pure hypercholesterolemia, unspecified; K21.9 Gastro-esophageal reflux disease without esophagitis; Z85.3 Personal history of malignant neoplasm of breast; Z88.0 Allergy status to penicillin; Z90.12 Acquired absence of left breast and nipple; Z88.8 Allergy status to other drugs, medicaments and biological substances
CPT/HCPCS: 36415; 71045; 71275; 80053; 81001; 85014; 85018; 85025; 85610; 85730; 86850; 86900; 86901; 86920; 87426; 87804; 93005; 94640; 96365; 96366; 96367; G0378; J0696

== ENCOUNTER 2022-07-26 09:43 | Inpatient (IN) | payer MEDICARE, MEDICAID ==
[~2022-07-26] VITALS: Ht 162.6 cm; Wt 71.2 kg
[~2022-07-26 09:43] MED LIST changes: +HYDR-4297 PO; -HYDR50TA15 PO; -LISI20TA28 PO; +LISI20TA56 PO
[2022-07-26 10:09] LABS: Basophils # (auto) 0 10 ^3/uL (0-0.2); Eosinophils # (auto) 0.1 10 ^3/uL (0-0.8); Lymphocytes # (auto) 1.5 10 ^3/uL (0.4-5.4)
[2022-07-26 10:10] LABS: Basophils % (auto) 0.2 % (0.0-2.0); Eosinophils % (auto) 1.7 % (0.0-7.0); Hematocrit 32.9 % (36.0-46.0); Hemoglobin 10.2 g/dL (12.2-16.2); Lymphocytes % (auto) 26.8 % (10.0-50.0); Mean Corpuscular Hemoglobin 20.9 pg (28.0-32.0); Mean Corpuscular Volume 67.3 fL (80.0-100.0); Monocytes # (auto) 0.3 10 ^3/uL (0-1.3); Monocytes % (auto) 6.2 % (0.0-12.0); Neutrophils # (auto) 3.6 10 ^3/uL (1.6-8.6); Neutrophils % (auto) 65.1 % (37.0-80.0); Nucleated Red Blood Cells % 0.1 %; Red Blood Cells 4.89 10^6/uL (4.0-5.20); Red Cell Distribution Width 17.6 % (11.8-14.3); White Blood Cell 5.5 10^3/uL (4.4-10.8)
[2022-07-26] MEDS ORDERED: SODIUM CHLORIDE 0.9% 1,000 ML IV ONE ×2 (11:00)
[2022-07-26 11:33] LABS: Urine Bacteria MANY /hpf (None Seen); Urine Blood TRACE /uL (Negative); Urine Mucus FEW (None Seen); Urine Specific Gravity 1.021 (1.001-1.035); Urine WBC 338 /hpf (0 - 5); Urine WBC Clumps PRESENT /hpf (None Seen)
[2022-07-26] MEDS ORDERED: levoFLOXacin 500MG 100 ML IV ONE (12:15)
[2022-07-26 12:36] LABS: Albumin 3.1 g/dL (3.4-5.0); BUN/Creatinine Ratio 36.6 (10.0-20.0); Calcium 9.6 mg/dL (8.5-10.1); Potassium 4.1 mmol/L (3.5-5.1)
[2022-07-26 12:39] LABS: Bilirubin, Total 0.3 mg/dL (0.2-1.0); Total Protein 7.2 g/dL (6.4-8.2)
[2022-07-26] MEDS ORDERED: MORPHINE SULFATE INJ 2 MG/ml SYRG IV PRN (16:15)
[2022-07-26] MEDS ORDERED: cefTRIAXone 1GM/50ML D5W 50 ML IV SCH (16:15)
[2022-07-26] MEDS ORDERED: NITROGLYCERIN 0.4 MG SL TAB SL PRN (16:15)
[2022-07-26] MEDS: SOD CHL 0.45% 1,000 ML IV SCH (16:25)
[2022-07-26 22:59] VITALS: BP 140/62
[2022-07-27 05:00] VITALS: BP 123/68
[2022-07-27] MEDS: SOD CHL 0.45% 1,000 ML IV SCH ×2 (05:42→21:22)
[2022-07-27 06:31] LABS: Basophils # (auto) 0 10 ^3/uL (0-0.2); Eosinophils # (auto) 0.1 10 ^3/uL (0-0.8); Lymphocytes # (auto) 1.2 10 ^3/uL (0.4-5.4); Monocytes # (auto) 0.5 10 ^3/uL (0-1.3); Nucleated Red Blood Cells % 0.1 %
[2022-07-27 06:34] LABS: Basophils % (auto) 0.3 % (0.0-2.0); Eosinophils % (auto) 1.5 % (0.0-7.0); Hematocrit 31.7 % (36.0-46.0); Lymphocytes % (auto) 19.2 % (10.0-50.0); Mean Corpuscular Hemoglobin 21.4 pg (28.0-32.0); Mean Corpuscular Hgb Conc. 31.6 g/dL (32.0-36.0); Mean Corpuscular Volume 67.7 fL (80.0-100.0); Monocytes % (auto) 7.6 % (0.0-12.0); Neutrophils # (auto) 4.5 10 ^3/uL (1.6-8.6); Neutrophils % (auto) 71.4 % (37.0-80.0); Red Blood Cells 4.69 10^6/uL (4.0-5.20); Red Cell Distribution Width 17.6 % (11.8-14.3); White Blood Cell 6.3 10^3/uL (4.4-10.8)
[2022-07-27 06:49] LABS: BUN/Creatinine Ratio 39.3 (10.0-20.0); Calcium 8.8 mg/dL (8.5-10.1)
[2022-07-27 07:08] LABS: Bilirubin, Total 0.4 mg/dL (0.2-1.0); Total Protein 7.2 g/dL (6.4-8.2)
[2022-07-27 07:35] VITALS: BP 145/76
[2022-07-27 09:00] VITALS: BP 145/75
[2022-07-27] MEDS ORDERED: cefTRIAXone 1GM/50ML D5W 50 ML IV ONE (09:30)
[2022-07-27] MEDS ORDERED: levoFLOXacin 250MG 50 ML IV SCH (10:00)
[2022-07-27 13:00] VITALS: BP 132/64
[2022-07-27 17:00] VITALS: BP 147/88
[2022-07-27] MEDS ORDERED: DEXTROSE 10% 250 ML Bag IV ONE (20:00)
[2022-07-27] MEDS ORDERED: DEXTROSE 10% 250 ML Bag IV PRN (20:00)
[2022-07-27 22:00] VITALS: BP 123/74
[2022-07-28 08:29] VITALS: BP 121/69
[2022-07-28 09:00] VITALS: BP 121/69
[2022-07-28] MEDS ORDERED: cefTRIAXone 1GM/50ML D5W 50 ML IV SCH (09:00)
[2022-07-28] MEDS: SOD CHL 0.45% 1,000 ML IV SCH ×2 (09:07→14:02)
[2022-07-28] MEDS: ERTAPENEM SOD INJ 1 GM in SODIUM CHL 0.9% 50 ML IV SCH (15:25)
[2022-07-28 20:00] VITALS: BP 132/74
[2022-07-29] MEDS: SOD CHL 0.45% 1,000 ML IV SCH (03:47)
[2022-07-29 05:00] VITALS: BP 137/56
[2022-07-29] MEDS: ERTAPENEM SOD INJ 1 GM in SODIUM CHL 0.9% 50 ML IV SCH (09:56)
[2022-07-30] MEDS: SOD CHL 0.45% 1,000 ML IV SCH (06:22)
[2022-07-30 08:30] VITALS: BP 129/60
[2022-07-30 09:00] VITALS: BP 129/60
[2022-07-30] MEDS: ERTAPENEM SOD INJ 1 GM in SODIUM CHL 0.9% 50 ML IV SCH (09:10)
[2022-07-30 10:35] LABS: Basophils # (auto) 0 10 ^3/uL (0-0.2); Eosinophils # (auto) 0.1 10 ^3/uL (0-0.8); Hemoglobin 10.2 g/dL (12.2-16.2); Lymphocytes # (auto) 1.4 10 ^3/uL (0.4-5.4); Mean Corpuscular Hemoglobin 20.8 pg (28.0-32.0); Monocytes # (auto) 0.3 10 ^3/uL (0-1.3); Nucleated Red Blood Cells % 0.2 %; White Blood Cell 5.1 10^3/uL (4.4-10.8)
[2022-07-30 10:39] LABS: Basophils % (auto) 0.4 % (0.0-2.0); Eosinophils % (auto) 2.7 % (0.0-7.0); Hematocrit 33.3 % (36.0-46.0); Lymphocytes % (auto) 28.2 % (10.0-50.0); Mean Corpuscular Hgb Conc. 30.6 g/dL (32.0-36.0); Mean Corpuscular Volume 68.1 fL (80.0-100.0); Monocytes % (auto) 5.9 % (0.0-12.0); Neutrophils # (auto) 3.2 10 ^3/uL (1.6-8.6); Neutrophils % (auto) 62.8 % (37.0-80.0); Red Cell Distribution Width 18.1 % (11.8-14.3)
[2022-07-30 11:01] LABS: Albumin 2.9 g/dL (3.4-5.0); Calcium 7.7 mg/dL (8.5-10.1); Potassium 3.8 mmol/L (3.5-5.1)
[2022-07-30 11:04] LABS: Bilirubin, Total 0.2 mg/dL (0.2-1.0); Total Protein 5.9 g/dL (6.4-8.2)
[2022-07-30 13:00] VITALS: BP 129/60
[2022-07-30] MEDS ORDERED: DEXTROSE (50%) 50ML SYRG IV ONE (13:45)
[2022-07-30] MEDS: D5W/SOD CHL 0.45% 1,000 ML IV SCH (13:49)
[2022-07-30 17:00] VITALS: BP 141/89
[2022-07-30 22:00] VITALS: BP 141/61
[2022-07-31 05:00] VITALS: BP 148/48
[2022-07-31] MEDS ORDERED: DEXTROSE (50%) 50ML SYRG IV PRN (07:45)
[2022-07-31] MEDS: ERTAPENEM SOD INJ 1 GM in SODIUM CHL 0.9% 50 ML IV SCH (08:46)
[2022-07-31] MEDS: D5W/SOD CHL 0.45% 1,000 ML IV SCH ×2 (08:51→17:58)
[2022-07-31 09:37] VITALS: BP 110/51
[2022-07-31] MEDS: InsuLIN REG 1unit/0.01ml Soln (100units/ml) SC SCH ×3 (11:30→22:00)
[2022-07-31 12:00] VITALS: BP 156/65
[2022-07-31] MEDS: ACCU-CHEK COMFORT CURVE STRIP VI SCH ×3 (12:15→22:19)
[2022-07-31 16:53] VITALS: BP 146/77
[2022-07-31 22:00] VITALS: BP 95/46
[2022-08-01 05:00] VITALS: BP 101/56
[2022-08-01] MEDS: ACCU-CHEK COMFORT CURVE STRIP VI SCH ×4 (05:50→22:00)
[2022-08-01] MEDS: InsuLIN REG 1unit/0.01ml Soln (100units/ml) SC SCH ×4 (05:54→22:00)
[2022-08-01] MEDS: ERTAPENEM SOD INJ 1 GM in SODIUM CHL 0.9% 50 ML IV SCH (07:31)
[2022-08-01] MEDS: D5W/SOD CHL 0.45% 1,000 ML IV SCH ×2 (07:33→19:05)
[2022-08-01 09:00] VITALS: BP 94/46
[2022-08-01 12:18] VITALS: BP 110/62
[2022-08-01 12:24] VITALS: BP 110/62
[2022-08-01 17:13] VITALS: BP 119/62
[2022-08-01 22:00] VITALS: BP 103/81
[2022-08-02 05:00] VITALS: BP 105/62
[2022-08-02] MEDS: ACCU-CHEK COMFORT CURVE STRIP VI SCH ×2 (07:00→11:30)
[2022-08-02] MEDS: InsuLIN REG 1unit/0.01ml Soln (100units/ml) SC SCH ×2 (07:00→11:30)
[2022-08-02] MEDS: ERTAPENEM SOD INJ 1 GM in SODIUM CHL 0.9% 50 ML IV SCH (07:13)
[2022-08-02] MEDS: D5W/SOD CHL 0.45% 1,000 ML IV SCH (07:13)
[2022-08-02 12:00] VITALS: BP 114/53
== END 2022-08-02 17:17 | DRG 71 ==
LOC: EDBD 09:43 → ER 09:43 → OVERFLOW 16:07 → CENTRAL 22:40
PROVIDERS: ADMIT Internal Medicine; ATTEND Internal Medicine
DX: G93.41 Metabolic encephalopathy (principal); E44.1 Mild protein-calorie malnutrition; N39.0 Urinary tract infection, site not specified; I50.32 Chronic diastolic (congestive) heart failure; E03.9 Hypothyroidism, unspecified; D86.9 Sarcoidosis, unspecified; D64.9 Anemia, unspecified; Z20.822 Contact with and (suspected) exposure to COVID-19; E86.0 Dehydration; F03.90 Unspecified dementia, unspecified severity, without behavioral disturbance, psychotic disturbance, mood disturbance, and anxiety; I11.0 Hypertensive heart disease with heart failure; M19.90 Unspecified osteoarthritis, unspecified site; Z88.0 Allergy status to penicillin; Z68.26 Body mass index [BMI] 26.0-26.9, adult
CPT/HCPCS: 36415; 70450; 80053; 81001; 82962; 85025; 87086; 87088; 87186; 87426; 93005; 96361; 96365; 97163; G0378; J0696; J1335; J1956; J7060